=== PATIENT | female | born 1965 | race Caucasian/White ===

== ENCOUNTER → 2024-02-22 07:56 | Outpatient (REF) | payer BC, SELFPAY | LOC: RAD 07:56 | PROVIDERS: FAMILY PHYSICIAN Family Medicine | DX: C50.919 Malignant neoplasm of unspecified site of unspecified female breast (principal); Z17.0 Estrogen receptor positive status [ER+] | CPT/HCPCS: 93971 ==

== ENCOUNTER → 2024-09-23 08:06 | Outpatient (REF) | payer BC, SELFPAY | LOC: HWRCS 08:06 | PROVIDERS: ATTENDING PHYSICIAN Internal Medicine Hematology & Oncology | DX: C50.211 Malignant neoplasm of upper-inner quadrant of right female breast (principal) | CPT/HCPCS: 93306 ==

== ENCOUNTER → 2025-02-21 10:58 | Outpatient (REF) | payer BC, SELFPAY | LOC: RAD 10:58 | PROVIDERS: ATTENDING PHYSICIAN Internal Medicine Hematology & Oncology; FAMILY PHYSICIAN Family Medicine | DX: C50.919 Malignant neoplasm of unspecified site of unspecified female breast (principal); C79.51 Secondary malignant neoplasm of bone | CPT/HCPCS: 93970 ==